=== PATIENT | male | born 1970 | race Two or more races ===

== ENCOUNTER 2022-12-10 17:14 | Emergency (ER) | payer OTHER ==
[~2022-12-10] VITALS: Ht 167.6 cm; Wt 79.4 kg
[2022-12-10 19:20] LABS: MEAN CELL VOLUME 93.4 fL (80.0-100.00); MEAN CORPUSCULAR HEMOGLOBIN 31.2 pg (27.00-32.0); MEAN CORPUSCULAR HGB CONC 33.4 g/dl (32.0-36.0); PLATELET COUNT 277 K/uL (150-450); RED BLOOD COUNT 4.82 M/uL (4.00-6.00); RED CELL DISTRIBUTION WIDTH 12.9 % (11.5-14.5)
[2022-12-10 19:44] LABS: CALCIUM 9.2 mg/dL (8.5-10.1); CREATININE SERUM 0.87 mg/dL (0.70-1.30); GFR 91.44; POTASSIUM 3.59 mEq/L (3.5-5.1)
[2022-12-10 23:32] LABS: URINE APPEARANCE Cloudy; URINE BILIRRUBIN Negative (NEGATIVE); URINE BLOOD Negative; URINE COLOR Yellow; URINE GLUCOSE Negative (NEGATIVE); URINE LEUKOCYTE Trace; URINE NITRATE Negative; URINE PROTEIN Negative (NEGATIVE)
[2022-12-10 23:36] LABS: URINE BACTERIA 60.4 uL (0.0-1933); URINE RBC 20.6 uL (0.0-20.8); URINE WBC 37.8 uL (0.0-23.2)
== END 2022-12-11 07:14 | disposition home or self-care (01) ==
LOC: EDBD 17:14 → ER 17:14
PROVIDERS: General Practice
DX: R10.9 Unspecified abdominal pain (principal); N39.0 Urinary tract infection, site not specified
CPT/HCPCS: 36415; 74177; Q9965